=== PATIENT | female | born 1975 | race Caucasian/White ===

== ENCOUNTER 2022-03-03 14:25 | Outpatient (CLI) | payer OTHER, SELFPAY ==
--- OUTSIDE RECORDS SUMMARY | 2022-02-12 09:28 | XMS_ITS | Continuity of Care Document ---
:1975 Author Allergies, Adverse Reactions, Alerts Allergen Type Severity Reaction Last Updated Verified Status Honey Allergy Severe throat May Yes Active swelling/hive 2013 s Social History Smoking Status Status Start Date End Date Date of Observat ion Never smoked tobacco February 19, 2020 9:30am (finding) Additional Data Assigned Sex Female Problems Active Problems Medical Problem Onset Date Status Total abdominal hysterectomy Active Bilateral Salpingectomy Active Pneumonia due to COVID-19 virus Active Medications Medication Status Dose Units Route Directions Qty Days Start End Ins tructions Date Date Azithromycin Active 250-5 MG PO As Directed 25 January 500 MG ON DAY (Zithromax THEN 25 0 MG Z-Noel) 250 Mg 2019 DAILY X 4 TAB 10:52am MORE DAYS Ferrous Active 65 MG PO Twice Daily 100 Sulfate (Iron With Meals (Ferrous Sulfate)) 325 Mg TAB Vit Active 1 TAB OR Daily W/ Ferrous Fumara () TAB Control Discontin PO Daily Septem ued fili 2013 2:57pm Cephalexin Discontin 500 MG PO Three Times February (Keflex) 500 ued A Day 22nd, Mg CAP 2013 11:22a m Docusate Discontin 100 MG PO Twice A Day Octobe Sodium ued as needed r (Colace) 100 , Mg CAP 2013 8:41am Ibuprofen Discontin 600 MG PO Every 6 30 Septemb Octobe ued Hours er r 2013 8:02am 8:41am Ibuprofen Discontin 600 MG PO Q6h Prn 24 Septem (Advil) 200 ued fili Mg TAB 2013 8:02am Iron Discontin PO Daily Septem ued fili 2013 2:57pm Norethindrone Discontin 1 TAB PO Daily 28 Septem (Ortho ued fili Micronor) , 0.35 Mg TAB 2013 8:02am Oxycodone Hcl Discontin 5 MG PO Every 4 30 Septemb Octo be ued Hours as er r needed for , , Moderate 2013 2013 Pain 2:50pm 8:41am Oxycodone Hcl Discontin 5-10 MG PO Every 4 30 Septemb Octo be ued Hours as er r needed , 2013 10:10am 8:41am Oxycodone Hcl Discontin 5 MG PO Every 4 30 Septemb Sept em ued Hours as er fili needed for , , Moderate 2013 2013 Pain 8:02am 2:50pm Discontin Sept ( ued fili Multivit-Min , W/-) 2013 2:57pm Advance Directives Advance Directive Response Recorded Date/Time Does Pt have Health Care No June 14 014 2:21pm Directive? Has patient completed a No February 19, 2020 8:49am Health Care Directive? Insurance Providers Guarantor Johnnie Alonso Address [address] [address] Contact Info. Home Phone: CELL Payer Policy Id Coverage Id Subscriber's Subscriber Id Effective E xpiration Name Date Date [place] [id number] Ranjan Lujan [id number] Screening Johnnie Doss Program Plan of Treatment Future Tests Future scheduled test information is unavailable Pending Tests Pending diagnostic test information is unavailable Future Visits Future appointment information is unavailable Referrals to Other Providers Reason for Referral Start Provider Provider Contact Provider Address Referral Date Information Tony Aranda Work Phone: JOSE C GUERRERO [employer] [facility]AR[facility] Mary [facility] [phone] Future Procedures Future procedure information is unavailable Future Medications Future medication information is unavailable Patient Instructions See Additional Instructions Oxycodone, Rapid Release (By mouth) Abdominal Hysterectomy (DC)
--- NOTE | 2022-03-03 14:40 | CRLHL7_ITS ---
For Patients: As a result of the Century Cures Act, medical imaging exams and procedure reports are released immediately into your electronic medical record. You may view this report before your referring provider. If you have questions, please contact your health care provider. BILATERAL MAMMOGRAM WITH COMPUTER-AIDED DETECTION AND TOMOSYNTHESIS TECHNIQUE: CC and MLO views were obtained. These mammographic images have been obtained using full-field digital technique. These mammographic images were interpreted with the benefit of computer-aided detection. Breast Tomosynthesis was used in this interpretation. COMPARISON FILM: 05/15/2020, 09/23/2016. FINDINGS: The breasts are almost entirely fatty IMPRESSION: There is no radiographic evidence for malignancy. ASSESSMENT: BI-RADS Category 1: Negative RECOMMENDATION: Routine screening mammogram in 1 year. A lay language report of this examination will be provided to the patient. Fausto Villalobos M.D. Diagnostic Radiologist [email or web address] YOLIE/Dictated by: Fausto Villalobos MD @ 03/04/2022 8:52:00 AM (Electronically Signed)
== END 2022-03-03 14:26 | disposition home or self-care (01) ==
LOC: MAMMO 14:26
PROVIDERS: PCP Family Medicine; Visit Provider Nurse Practitioner Family
DX: Z12.31 Encounter for screening mammogram for malignant neoplasm of breast (principal)
CPT/HCPCS: 77063; 77067

== ENCOUNTER 2024-01-06 15:36 | Outpatient (CLI) | payer SELFPAY ==
--- OUTSIDE RECORDS SUMMARY | 2024-01-06 15:40 | XMS_ITS | Data Portability ---
Author Name Unknown Address [address] [place] [id number] Phone [phone] Organization [facility] - Ramakrishna taveras [facility] OFF[facility] Address [address] [place] [address] [place] [address] Assessment Encounter Date Assessment Date Assessment LastModified by Organization Details LastModified Time 02/04/2021 02/04/2021 Due for wellness check (+ cervical/breas t cancer screening) and age appropriate labs before the end of the year. May be done at [facility] (if granted APC) or here. Patient is aware. [email or web address] Not available 02/04/2021 11:33:02 09/21/2021 09/21/2021 + Due for breast and cervical cancer screening. We will enroll in [facility]. [email or web address] Not available 09/21/2021 16:14:50 Plan of Treatment Reminders Order Date Submit Date Provider Last Modified By Organization Details Last Modified Time Details Appointments Any 30 2023 02:30P Dee Dee CARUSO MD Not available Not available Not available Lab CBC w/ auto diff 2023 024 [email or web address] Not available 01/05/2024 16:41:51 CMP, serum or plasma 2023 024 Not available 01/05/2024 16:41:10 fecal occult blood, immunoa ssay, stool 2023 024 Not available 01/05/2024 16:41:10 hemoglo bin A1c, QN, blood 2023 024 [email or web address] Not available 01/05/2024 16:41:21 lipid panel, blood 2021 022 CANDICE Not available 01/05/2022 11:24:03 fecal occult blood, immunoa ssay, stool 2021 CANDICE Not available 11/23/2021 17:39:48 glycohe moglobi n, total, blood 2021 CANDICE Not available 01/05/2022 11:24:03 lipid panel, serum 2021 CANDICE Not available 10/22/2021 13:39:03 fecal occult blood, immunoa ssay, stool 2021 [email or web address] Not available 11/23/2021 17:38:55 glycohe moglobi n, total, blood 2021 CANDICE Not available 10/23/2021 10:31:25 CMP, serum or plasma 2020 CANDICE Not available 11/10/2020 12:59:05 CBC w/ auto diff 2020 CANDICE Not available 11/10/2020 12:59:05 Referral [facility] health worker referra l 2023 024 Not available 01/05/2024 16:41:10 [facility] health worker referra l - Home BP program r/t elevate d BP reading in clinic today. 2020 021 [email or web address] Not available 12/15/2020 12:44:37 care coordin ation referra l - Please help with APC applica tion for likely surgery or GI/Hepa tology referra l. 2020 021 [email or web address] Not available 12/15/2020 16:50:25 Procedures None recorde d. Surgeries None recorde d. Imaging MAMMO, screeni nawaf romo bilater al 2023 024 [facility] Radiology Non Stat, [address], [place], [address], 01/05/2024 16:41:10 MAMMO, screeni aureliano romo 2021 022 [facility] Radiology Non Stat, [address], [place], [address], 03/05/2022 09:24:59 US, abdomen , complet e - Hx fatty liver, intermi ttent acute RUQ pain. 2020 021 [email or web address] [facility] Radiology Non Stat, [address], [place], [address], 12/23/2020 15:13:50 US, abdomen 2020 021 CANDICE Not available 11/10/2020 15:05:38 Medication Orders doxycyc line hyclate 100 mg capsule [address], [address] [place], [address], 01/05/2024 16:41:10 prednis one 20 mg tablet [address], [address] [place], [address], 01/05/2024 16:02:42 cyclobe nzaprin e 10 mg tablet 2023 024 [facility], [address] [place], [address], 12/08/2023 17:08:35 metroni dazole 500 mg tablet [address], [address], [place], [address], 12/08/2023 16:56:11 clotrim azole 1 % topical cream [address], [address], [place], [address], 12/08/2023 16:56:22 Patient TargetsNo targets recorded. Patient Instructions Encounter Date Encounter Id Patient Instructions Last Modified By Organization Details Last Modified Time 12/08/2023 [id number] meds as above ho me exercises Follow up in 4 weeks - due for IRAJ exam and can more further plan for back if needed at that time Not available 12/08/2023 22:28:45 11/02/2021 [id number] vaginosis bacteriana: instrucciones de cuidado - [bacterial vaginosis: care instructions] [email or web address] Not available 11/02/2021 12:05:02 pie de atleta: instrucciones de cuidado - [athlete's foot: care instructions] [email or web address] Not available 11/02/2021 12:05:02 09/21/2021 [id number] insomnio: instrucciones de cuidado - [insomnia: care instructions] [email or web address] Not available 09/21/2021 16:19:00 Reason for Referral Community Health Worker Refe rral for Elevated blood-pressure reading without diagnosis of hypertension Home BP program r/t elevated BP reading in clinic today. Referring Physician: Christina Sevilla, Family Medicine, Encounter Date: 12/15/2020 Care Coordination Referral f or Right upper quadrant pain Please help with APC application for likely surgery or GI/Hepatology referral. Referring Physician: Christina Sevilla Family Medicine, Encounter Date: 12/15/2020 Community Health Worker Refe rral for Elevated blood-pressure reading without diagnosis of hypertension Blood pressure follow up/home monitoring/education Referring Physician: Domonique Caruso Family Medicine, Encounter Date: 01/05/2024 Results Created Date Observation Date Name Description Value Unit Range Abnormal Flag LastModifiedBy Organization Detail LastModifiedTime 11/11/19 21 11/10/2020 CBC w/ auto diff creatinine 0.6 Not Available [facility]- Lab [address] [place], [address], 11/10/2020 12:59:05 11/11/19 21 11/10/2020 CBC w/ auto diff ALT 28 Not Available [facility]- Lab [address] [place], [address], 11/10/2020 12:59:05 11/11/19 21 11/10/2020 CBC w/ auto diff white blood count 8.91 Not Available [facility] [address] [place], [address], 11/10/2020 12:59:05 11/11/19 21 11/10/2020 CBC w/ auto diff hemoglobin 14.0 Not Available [facility] [address] [place], [address], 11/10/2020 12:59:05 11/11/19 21 11/10/2020 CBC w/ auto diff platelet count 400 Not Available [facility] [address] [place], [address], 11/10/2020 12:59:05 11/11/19 21 11/10/2020 CMP, serum or plasm a creatinine 0.6 Not Available [facility] [address] [place], [address], 11/10/2020 12:56:35 11/11/19 21 11/10/2020 CMP, serum or plasm a ALT 28 Not Available [facility]- Lab [address] [place], [address], 11/10/2020 12:56:35 11/11/19 21 11/10/2020 CMP, serum or plasm a white blood count 8.91 Not Available [facility] [address] [place], [address], 11/10/2020 12:56:35 11/11/19 21 11/10/2020 CMP, serum or plasm a hemoglobin 14.0 Not Available [facility] [address] [place], [address], 11/10/2020 12:56:35 11/11/19 21 11/10/2020 CMP, serum or plasm a platelet count 400 Not Available [facility] [address] [place], [address], 11/10/2020 12:56:35 10/22/19 22 10/21/2021 lipid panel , serum cholesterol total 179 Not Available Not Available 12:18:41 10/22/19 22 10/21/2021 lipid panel , serum triglyceride s 93 Not Available Not Available 12:18:41 10/22/19 22 10/21/2021 lipid panel , serum HDL 56 Not Available Not Available 10/2021 12:18:41 10/22/19 22 10/21/2021 lipid panel , serum LDL 104 Not Available Not Available 10/2021 12:18:41 10/22/19 22 10/21/2021 glyco hemog lobin , total , blood A1C 5.5 Not Available Not Available 11/2021 09:28:16 10/29/19 22 10/28/2021 fecal occul t blood , immun oassa y, stool ifobt neg neg normal Not Available Not Available 11/2021 17:39:13 01/06/20 22 01/05/2022 glyco hemog lobin , total , blood total cholesterol 166 Not Available [facility] [address] [place], [address], 01/05/2022 11:24:03 01/06/20 22 01/05/2022 glyco hemog lobin , total , blood triglyceride s 95 Not Available [facility] [address] [place], [address], 01/05/2022 11:24:03 01/06/20 22 01/05/2022 glyco hemog lobin , total , blood HDL 57 Not Available [facility] [address] [place], [address], 01/05/2022 11:24:03 01/06/20 22 01/05/2022 glyco hemog lobin , total , blood LDL 90 Not Available [facility] [address] [place], [address], 01/05/2022 11:24:03 01/06/20 22 01/05/2022 glyco hemog lobin , total , blood hemoglobin A1C 5.5 Not Available [facility] [address] [place], [address], 01/05/2022 11:24:03 01/06/20 22 01/05/2022 lipid panel , blood total cholesterol 166 Not Available [facility] [address] [place], [address], 01/05/2022 10:08:19 01/06/20 22 01/05/2022 lipid panel , blood triglyceride s 95 Not Available [facility] [address] [place], [address], 01/05/2022 10:08:19 01/06/20 22 01/05/2022 lipid panel , blood HDL 57 Not Available [facility] [address] [place], [address], 01/05/2022 10:08:19 01/06/20 22 01/05/2022 lipid panel , blood LDL 90 Not Available [facility] [address] [place], [address], 01/05/2022 10:08:19 01/06/20 22 01/05/2022 lipid panel , blood hemoglobin A1C 5.5 Not Available [facility] [address] [place], [address], 01/05/2022 10:08:19 11/11/19 21 11/10/2020 US, abdom en No observ ation record ed. [email or web address] [facility] Radiology Department [address] [place], [address], 11/24/2020 16:47:23 12/24/19 21 12/18/2020 US, abdom en, compl ete No observ ation record ed. [facility] Radiology Non Stat [address] [facility] [place], [address], 12/23/2020 16:37:21 03/05/20 22 03/03/2022 MAMMO , scree roseann, bilat eral No observ ation record ed. [email or web address] [facility] Radiology Department [address] [place], [address], 03/22/2022 11:44:45 Result Notes None recorded. Problems Name Status Onset Date Resolution Date Notes Provider Name and Address Organization Details Recorded Time Right upper quadrant pain Active 02/05/20 21 Christina Sevilla NP [address] [place], [address], [facility] [employer] 02/04/2021 11:22:59 Steatosis of liver Active 02/05/20 21 [place] [address] [place] [address], [address], [facility] [employer] 11/02/2021 12:45:47 SARS-CoV-2 Active 02/15/20 [place] [address] [place] [address], [address], [facility] [employer] 11/02/2021 12:45:45 Obesity Active 11/03/19 22 Christina Sevilla NP [address] [place], [address], [facility] [employer] 11/02/2021 12:46:09 History of pre-eclampsia Active 11/04/19 15 Christina Sevilla NP [address] [place], [address], [facility] [employer] 11/02/2021 12:45:43 Problem Notes None recorded. Procedures Surgical History Date Name Laterality Status Provider Name and Address Organization Details Recorded Time 08/22/19 20 Date of Last Mammogram completed Christina Sevilla NP [address] [place], [address], [facility] [employer] 09/21/2021 16:08:58 08/22/19 16 Date of Last Pap Smear completed Christina Sevilla NP [address] [place], [address], [facility] [employer] 09/21/2021 16:08:45 08/22/19 14 hysterectomy completed Christina Sevilla NP [address] [place], [address], [place] [facility] 11/02/2021 12:50:55 Imaging Results Imaging Date Name Status LastModified by Organiz ation Details LastModified Time 11/10/2020 US, abdomen completed [email or web address] [facility] Radiology Department [address] [place], [address], 11/24/2020 16:47:23 12/18/2020 US, abdomen, complete completed [email or web address] [facility] Radiology Non Stat [address] [place], [address], 12/23/2020 16:37:21 03/03/2022 MAMMO, screening, bilateral completed [email or web address] [facility] Radiology Department [address] [place], [address], 03/22/2022 11:44:45 Procedure Notes None recorded. Medical Equipment None Reported. Allergies No known drug allergies Medications Name Sig Start Date Stop Date Status Note LastModified by Organization Details LastModified Time cyclobenza nadir 10 mg tablet TAKE 1 TABLET BY MOUTH EVERY DAY AT BEDTIME FOR BACK PAIN. active Not Available Not Available No t Available Levsin 0.125 mg tablet Take 1 tablet twice a day by oral route. 09/21 completed As needed for pain; per Dr. Hill. Not Available Not Available Not Available doxycyclin e hyclate 100 mg capsule Take 1 capsule twice a day by oral route, for follicul itis. 2023 active Not Available Not Available Not Avai lable azithromyc in 250 mg tablet 11/03 completed Not Available Not Available Not Available prednisone 20 mg tablet TAKE 1 TABLET BY MOUTH EVERY MORNING FOR 7 DAYS FOR OF BACK PAIN. 01/04 completed Not Available Not Available Not Available metronidaz ole 500 mg tablet TAKE ONE TABLET BY MOUTH EVERY 12 HOURS FOR 7 DAYS 12/07 completed Not Available Not Available Not Available benzonatat e 100 mg capsule TK 1 C PO TID PRF COUGH 11/03 completed Not Available Not Available Not Available cephalexin 500 mg capsule take 1 capsule by oral route every 12 hours 11/03 completed Not Available Not Available Not Available albuterol sulfate HFA 90 mcg/actuat ion aerosol inhaler Inhale 2 puffs every 4 hours by inhalati on route as needed. 12/15 completed Not Available Not Available Not Available clotrimazo le 1 % topical cream APPLY TO AFFECTED AND SURROUND ING AREAS OF SKIN TWICE A DAY IN THE MORNING AND IN THE EVENING 12/07 completed Not Available Not Available Not Available amoxicilli n 875 mg-potassi um clavulanat e 125 mg tablet TK 1 T PO BID WITH MEALS FOR 5 DAYS 11/03 completed Not Available Not Available Not Available black cohosh 40 mg tablet one a day 12/15 completed Not Available Not Available Not Available valerian root 11/02 completed Not Available Not Available Not Available Vitals Date Recorded Body temperature Heart rate Body weight Body mass index (BMI) Body height Systolic blood pressure Diastolic blood pressure Systolic blood pressure Diastolic blood pressure Provider Name and Address Organization Details Last Updated DateTime 1 98.6 [degF] 73 /min 273434. 16 g 47.3 kg/m2 160.02 cm 140 mm[Hg] 85 mm[Hg] 155 mm[Hg] 90 mm[Hg] Christina Sevilla NP [address] [place], [address] 1 11:45:46 Date Recorded Body height Body temperature Heart rate Body mass index (BMI) Body weight Systolic blood pressure Diastolic blood pressure Provider Name and Address Organization Details Last Updated DateTime 2 160.02 cm 97.6 [degF] 73 /min 46.2 kg/m2 753975. 61 g 125 mm[Hg] 80 mm[Hg] Christina Sevilla NP [address] [place], [address], [facility] 2 11:35:19 Date Recorded Body height Body mass index (BMI) Body weight Heart rate Systolic blood pressure Diastolic blood pressure Provider Name and Address Organization Details Last Updated DateTime 2 160.02 cm 46.2 kg/m2 102339. 61 g 72 /min 124 mm[Hg] 82 mm[Hg] Christina Sevilla, [employer] [address] [place], [address] [employer] [facility] 2 12:44:35 Date Recorded Body height Body mass index (BMI) Body weight Respiratory rate Oxygen saturation Oxygen saturation in Arterial blood by Pulse oximetry Body temperature Heart rate Systolic blood pressure Diastolic blood pressure Provider Name and Address Organization Details Last Updated DateTime 4 160.02 cm 45.3 kg/m2 054611. 21 g 22 /min 99 % 99 % 97.1 [degF] 80 /min 132 mm[Hg] 84 mm[Hg] [facility] [employer] [facility] 4 16:48:47 Date Recorded Body height Body mass index (BMI) Body weight Respiratory rate Oxygen saturation Oxygen saturation in Arterial blood by Pulse oximetry Body temperature Heart rate Systolic blood pressure Diastolic blood pressure Provider Name and Address Organization Details Last Updated DateTime 4 160.02 cm 45.3 kg/m2 775269. 21 g 22 /min 99 % 99 % 97.2 [degF] 92 /min 140 mm[Hg] 92 mm[Hg] [facility] [employer] [facility] 4 15:59:30 Date Recorded Systolic blood pressure Diastolic blood pressure Provider Name and Address Organization Details Last Updated DateTime 10/23/2019 128 mm[Hg] 81 mm[Hg] Not Available [facility] 0 03/10/2020 12:57:46 Date Recorded Systolic blood pressure Diastolic blood pressure Provider Name and Address Organization Details Last Updated DateTime 06/19/2019 138 mm[Hg] 86 mm[Hg] Not Available [facility] 0 03/10/2020 12:57:46 Social History None recorded. Functional Status None recorded. Mental Status None recorded. Family History Relationship Description Onset Age of this Age Resolved Age Notes Mother Type 2 diabetes mellitus Mother Hypertensive disorder Mother Neoplasm of stomach Father Hypertensive disorder Sister Malignant tumor of breast Unknown type; alive and well. Medical History Condition Response Obesity Y Endometriosis Y Pre-Eclampsia Y Dermatologic Disorders Y Gynecological History Statement/Question Response Menses Monthly N Abnormal Pap Y If Post Menopausal, Age at Menopause Date of Last Pap Smear 08/22/2015 Date of Last Mammogram 08/22/2019 Sexually Active? Y Obstetrics History GPAL:G 4 P 3 0 1 3 Type Value Full Term 3 Spontaneous 1 Living 3 Total 4 Past Encounters Encounter ID Performer Location Encounter Start Date Encounter Closed Date Diagnosis/Indication Diagnosis SNOMED-CT Code [id number] Yelitza Galeana NP [facility] [address] [place] [id number] 02/13/2020 15:00:35 02/13/2020 15:03:08 [id number] Yelitza Galeana NP [facility] [address] [place] [phone] 02/27/2020 14:44:19 02/27/2020 14:44:58 [id number] Christina Sevilla NP [facility] [address] [place] [phone] 11/03/2020 09:47:30 11/04/2020 11:13:05 Abdominal pain 71605150 Right uppe r quadrant pain 087034532 [id number] Christina Sevilla NP [facility] [address] [place] [phone] 12/15/2020 11:27:05 12/15/2020 12:17:35 Elevated blood-pressure reading without diagnosis of hypertension 123794667 Right uppe r quadrant pain 473838824 Obesity 245325610 [id number] Christina Sevilla NP [facility] [address] [place] [phone] 02/04/2021 10:55:48 02/04/2021 14:30:19 Right upper quadrant pain 728242494 Steatosis of liver 1007 Elevated blood-pressure reading without diagnosis of hypertension 723964890 [id number] Christina Sevilla NP [facility] [address] [place] [phone] 09/21/2021 10:47:00 09/21/2021 11:43:49 Screening for malignant neoplasm of colon [id number] [facility] [id number] Diabetes m ellitus screening 504725453 Cholesterol screening 27 2720116 Obesity 597477080 Right uppe r quadrant pain 561229232 History of pre-eclampsia 42102144009680 0 Steatosis of liver 1007 [id number] Christina Sevilla NP [facility] [address] [place] [phone] 11/02/2021 11:27:51 11/02/2021 12:19:26 Bacterial vaginosis 459380762 Tinea pedis 0124432 Screening for malignant neoplasm of breast 968944338 Diabetes m ellitus screening 570897287 Hyperlipid emia screening 679584513 Screening for malignant neoplasm of colon 261295016 Obesity 382440953 Cyst of vulva 60031271 [id number] DOMONIQUE CARUSO MD [facility] [address] [place] [address] [place] [address] 12/08/2023 16:12:16 12/08/2023 17:18:56 Acute low back pain 386856013 [id number] DOMONIQUE CARUSO MD [facility] [address] [place] [address] [place] [address] 01/05/2024 15:24:31 01/05/2024 16:31:45 Gynecologic examination 83063900 Screening for malignant neoplasm of breast 785556116 Screening for malignant neoplasm of colon 948698218 Diabetes m ellitus screening 064344812 Easy bruising 032082518 Folliculitis 48657174 Elevated blood-pressure reading without diagnosis of hypertension 368822038 Health Concerns Section Related Observation LastModified by Organization Detai ls LastModified Time None Recorded Concern Status LastModified by Organization Details LastModified Time None Recorded Advance Directives Directive None Recorded Payers Encounter Date Sequence Insurance Name Policy Number Policy Huitron Covered Member ID Huitron Member ID Guarantor Name 01/05/2024 IRAJ SCREENING PROGRAM - [facility] Zakia Woodruff [id number] Zakia Woodruff 12/08/2023 IRAJ SCREENING PROGRAM - [facility] Zakia Woodruff [id number] Zakia Woodruff 11/02/2021 SLIDING FEE SCHEDULE - DISCOUNT Zakia Woodruff 09/21/2021 SLIDING FEE SCHEDULE - DISCOUNT Zakia Woodruff 02/04/2021 SLIDING FEE SCHEDULE - DISCOUNT Zakia Woodruff 12/15/2020 SLIDING FEE SCHEDULE - DISCOUNT Zakia Woodruff 11/03/2020 SLIDING FEE SCHEDULE - DISCOUNT Zakia Woodruff 02/27/2020 SLIDING FEE SCHEDULE - DISCOUNT Zakia Woodruff 02/13/2020 SLIDING FEE SCHEDULE - DISCOUNT Zakia Woodruff Notes Date Note Type Note Provider Name and Address Organization Details Recorded Time 11/03/2020 text/html HPI Notes: Abdominal Pain Reported by patient. Location: RUQ; Just below breast Severity: pain level 3-4/10 Duration: constant Onset/Timing: better Aggravating Factors: nothing makes it worse Alleviating Factors: Ibuprofen 600mg q6 hours Associated Symptoms: no fever; no shortness of breath; no vomiting; normal stool; no blood in stool; 1 day of nausea. No rashes or skin changes. No joint pain. Other: S/P Hysterectomy. Pain Radiation: around the back Previous Tests, Treatment and/or Diagnostic Procedures: OTC medications; Has been told she had a gallbladder inflammation during last 6 years ago. 45 year old [place]ag[place]-speaking woman reached today via phone. Ratna Harris interpreting. Had similar pain when she was 6 years ago and told this was gallbladder inflammation. Pain then resolved without treatment. Pain returned suddenly 1-2 weeks ago; pain was at 6-7/10 and now is 3-4 /10. A real bother. Had reduced appetite during more severe pain and could only tolerate liquids. Is now trying to eat very light, low-fat foods. 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 Ratna Harris interpreting via [email or web address]. 2 days ago: RUQ pain came back and was intense again. Today, woke with very mild pain: describes it as a mild bother. Before 2 days ago, pain was still present: alternates between being very light and very intense. The more intense episodes can last up to a day. 2 weeks ago had an episode of terrible pain and nausea, felt she wanted to go to the hospital but then pain abated after 2 hours. No fever or diarrhea. Ibuprofen and Tylenol have never helped. Has not tried any PPI or H2 blockers as pain as she does not believe the pain has any gastric origin. No reflux. No sour taste in mouth. Pain is always limited to RUQ, just along lower margin of breast and lower right costal margin. Again believes pain feels identical to the gallbladder pain she had in her . Frustrated by normal RUQ U/S last month and normal LFTs, negative H. Pylori. Has not been able to find any provoking cause. No food, activity or time or day that correlates with the pain. Daily BM. Soft. No nausea with the pain. No daily or frequent NSAID use. Had second dose dose of COVID-19 vaccine over the work. Took NSAIDs but they did not help. Was worried about increasing blood pressure and feels it wasn't taken seriously last year (record review shows BP was normal 11/08). Weight is up 16# from last year. 10/11 lab review: normal lipid profile, CMP, A1C 5.4%. 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 Hill. Pain has not resolved and she is frustrated that she has no answers. The CCK-HIDA scan was recommended but Zakia does not want to wait for APC application to be approved to schedule. She has not tried the Levsin yet as she was not sure how to fill it at [facility]. Tried to eat very healthy last week but found that this made her RUQ pain worse. BP at [facility]: 111/59. CHW Cindy Gonzalez has been following patient's BPs. Per patient, they are sometimes high, sometimes low. Full vaccinated against COVID-19. 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 Zakia reports good health and mood. She has been changing her diet to decrease her RUQ pain with great success: a lower fat and lower salt diet have been helpful. RUQ pain is improving; trying to eat goods that don't cause her damage. Heavy fats and salts. Pain episodes will come 2-3x/month; last 1 hour. This is tolerable. Gyne Review & Screenin years since a Pap smear. She has had abnormal pap in the past. Mammogram 2 years ago normal. No family history of breast cancer although her sister has breast cysts. No iFOBT or colon cancer screening done. PMH and PSH reviewed. ROS: Struggling a little with insomnia over the past 2 weeks. Falls asleep 9am; wakes at 6:30am. Melatonin is never helpful; causes headaches. Takes a long time to fall back asleep. Attributes to menopause due to lots of hot flashes as well as her bed partner snoring. Valerian root has helped in the past. No coffeine. No ETOH. Recently boosted for COVID. Christina Sevilla NP [address] [place], [address], [employer] 09/21/2021 16:21:22 11/02/2021 text/html HPI Notes: Zakia is a Malagasy-speaking woman who presents today for a [place] breast cancer screening exam. Zakia is also here to review her recent screening labs: iFOBT, Lipid Panel and A1C all excellent. Reviewed that patient's insomnia has resolved; attributes to COVID-19 vaccine side effects. Gyne/Breast Review: S/P [facility] 2013 for endometriosis and tumor. Ovaries remain. 3 x vaginal births. Currently sexually active. Reports new onset of foul-smelling, thin discharge after intercourse for the past month. No pain. No pruritis. No skin changes. No new partners. No home treatments tried. No breast concerns: no skin changes, dimpling, pain, discharge. Sister with breast cancer (unknown type). Christina Sevilla NP [address] [place], [address], [employer] 11/02/2021 12:52:25 12/08/2023 text/html HPI Notes: 48 yo u female with back pain Started about 3 weeks ago. 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 Pain located low back mostly on the right side pain seems worse - constant. Feels better if moving. Worse when she stops. But also has pain with certain movements. Pain bothersome at night. Pain keeps her awake, cannot get comfortale- sleeping in an arm chair. No radiation of pain to buttocks or legs. No numbness/tingling or weakness on LE. No symptoms of difficulty with voiding or bowel problems. Using ibuprofen - 3 tabs every 6 hours at time which has not helped. Has also used tylenol for pain. No past hx of back problems Has used naproxen in the past which she reports cause her BP to go up DOMONIQUE CARUSO MD [address] [place], [address], [facility] [employer] 12/08/2023 22:29:29 01/05/2024 text/html HPI Notes: __48_ _ y.o. F presents for [place] breast health visit Last mammogram date and result: 2021 Personal history of breast issues or concerns: Curent Breast ROS: denies breast lumps, pain, nipple discharge/itching, rash, change in appearance Family history of breast cancer: Breast self awareness discussed Last pap date/result: prior to hysterectomy History of abnormal pap smears: No Gynecologic history: s/p hysterectomy LMP: s/p hyst for fibroid Gynecologic ROS: denies vaginal discharge, itching, odor, irritation, pelvic pain, abnormal bleeding Does have some painful bumps on vulva - gets them occasionally - will drain fluid Also concerned about easy bruising. FH: colon cancer mother age colon Aunt age 47 DOMONIQUE CARUSO MD [address] [place], [address], [facility] [employer] 01/05/2024 16:41:16 OBGyn Episode No OBEpisode recorded.
--- OUTSIDE RECORDS SUMMARY | 2024-01-06 15:40 | XMS_ITS | Continuity of Care Document ---
Author Name Unknown Address [address] [place] [address] Phone [phone] Organization [place] [facility] Address [address] [place] [phone] Assessment No assessment recorded. Plan of Treatment Reminders Order Date Submit Date Provider Last Modified By Organization Details Last Modified Time Details Appointments None recorded . Lab CBC w/ auto diff 2023 024 [email or web address] Not available 4 16:41:51 CMP, serum or plasma 2023 024 Not available 16:41:10 fecal occult blood, immunoas say, stool 2023 024 Not available 4 16:41:10 hemoglob in A1c, QN, blood 2023 024 [email or web address] Not available 4 16:41:21 Referral communit y health worker referral 2023 024 Not available 4 16:41:10 Procedures None recorded . Surgeries None recorded . Imaging MAMMO, screenin g, digital, bilatera l 2023 024 [facility] Non Stat, [address] [place], [address], 4 16:41:10 Medication Orders doxycycl ine hyclate 100 mg capsule 2023 024 [facility], [address] [place] [address], [address], 16:41:10 Patient TargetsNo targets recorded. Patient InstructionsNo instructions recorded. Reason for Referral Community Health Worker Refe rral for Elevated blood-pressure reading without diagnosis of hypertension Home BP program r/t elevated BP reading in clinic today. Referring Physician: Christina Sevilla [facility], Encounter Date: 12/15/2020 Care Coordination Referral f or Right upper quadrant pain Please help with APC application for likely surgery or GI/Hepatology referral. Referring Physician: Christina Sevilla [facility] Medicine, Encounter Date: 12/15/2020 Community Health Worker Refe rral for Elevated blood-pressure reading without diagnosis of hypertension Blood pressure follow up/home monitoring/education Referring Physician: Domonique [facility], Encounter Date: 01/05/2024 Problems Name Status Onset Date Resolution Date Notes Provider Name and Address Organization Details Recorded Time Right upper quadrant pain Active 02/05/20 21 Christina Sevilla NP [address] [place], [address], [facility] 02/04/2021 11:22:59 Steatosis of liver Active 02/05/20 21 Christina Sevilla NP [address] [place], [address], [employer] [facility] 11/02/2021 12:45:47 SARS-CoV-2 Active 02/15/20 20 Christina Sevilla NP [address] [place], [address], [facility] 11/02/2021 12:45:45 Obesity Active 11/03/19 22 Christina Sevilla NP [address] [place], [address], [facility] 11/02/2021 12:46:09 History of pre-eclampsia Active 11/04/19 15 Christina Sevilla NP [address] [place], [address], [facility] 11/02/2021 12:45:43 Problem Notes None recorded. Procedures Surgical History Date Name Laterality Status Provider Name and Address Organization Details Recorded Time 08/22/19 20 Date of Last Mammogram completed Christina Sevilla, GABRIEL [address] [facility] [place], [address], [facility] 09/21/2021 16:08:58 08/22/19 16 Date of Last Pap Smear completed Christina Sevilla NP [address] [facility] [place], [address], [facility] 09/21/2021 16:08:45 08/22/19 14 hysterectomy completed Christina Sevilla, GABRIEL [address] [facility] [place], [address], [facility] 11/02/2021 12:50:55 Imaging Results None recorded. Procedure Notes None recorded. Medical Equipment None [...] Available Not Available Vitals Date Recorded Body height Body mass index (BMI) Body weight Respiratory rate Oxygen saturation Oxygen saturation in Arterial blood by Pulse oximetry Body temperature Heart rate Systolic blood pressure Diastolic blood pressure Provider Name and Address Organization Details Last Updated DateTime 160.02 cm 45.3 kg/m2 400641. 21 g 22 /min 99 % 99 % 97.2 [degF] 92 /min 140 mm[Hg] 92 mm[Hg] Monica Arriola [facility] 15:59:30 Social History None recorded. Functional Status None [...] Encounter Closed Date Diagnosis/Indication Diagnosis SNOMED-CT Code [id number] MD [facility] [address] [place] [address] [place] [address] 12/08/2023 16:12:16 12/08/2023 17:18:56 Acute low back pain [id number] MD [facility] [address] [facility] [place] [address] 01/05/2024 15:24:31 01/05/2024 16:31:45 Gynecologic examination 94593018 Screening for malignant neoplasm of breast 772668709 Screening for malignant neoplasm of colon 536796168 Diabetes m ellitus screening 750089402 Easy bruising 301343316 Folliculitis 28241241 Elevated blood-pressure reading without diagnosis of hypertension 544598637 Health Concerns Section Related Observation LastModified by Organization Detai ls LastModified Time None Recorded Concern Status LastModified by Organization Details LastModified Time None Recorded Payers Encounter Date Sequence Insurance Name Policy Number Policy Huitron Covered Member ID Huitron Member ID Guarantor Name 01/05/2024 [employer] - [place] [employer] Zakia Woodruff [id number] Zakia Woodruff Notes Date Note Type Note Provider Name and Address Organization Details Recorded Time 01/05/2024 text/html HPI Notes: __48_ _ y.o. F presents for [facility] breast health visit Last mammogram date and [...] colon Aunt age 47 DOMONIQUE CARUSO MD [facility] [place], [address], [facility] - [employer] [facility] 01/05/2024 16:41:16 OBGyn Episode No OBEpisode recorded.
--- OUTSIDE RECORDS SUMMARY | 2024-01-06 15:40 | XMS_ITS | Clinical Summary ---
Author Name Unknown Organization [employer] [facility] [place], [place] [address] Care Team Providers Care Passenger Tire Builder Name Role Phone NaifteTony lopez MD Primary Care Provider + Allergies No known active allergies Medications Medication Sig Dispensed Refills Start Date End Date Status hyoscyamine (LEVSIN) 0.125 mg tabletIndications:Abd ominal pain, RUQ (right upper quadrant) Take 1-2 Tablets (0.125-0.25 mg) by mouth every 4 hours if needed. 30 Tablet 11 01/28/2021 Active Active Problems Problem Noted Date Diagnosed Date HELLP syndrome, delivered, current hospitalizati on 03/14/2014 Status post vaginal delivery 03/14/2014 Resolved Problems Problem Noted Date Diagnosed Date Resolved Date Elderly multigravida delivered 03/14/2014 07/15/2014 Advanced maternal age (AMA) in 09/18/2013 07/15/2014 Supervision of other normal 09/07/2013 07/15/2014 Overview: Advanced maternal age Abnormal 1st trimester screen with 1/16 risk of Down Syndrome, reassuring level 2 ultrasound. It's a boy! TDaP 01/21/2014 Immunizations Name Administration Dates Next Due AMB Influenza, IIV3 (Age >=3 years)(Flu Clinic Only) 05/30/2009 COVID-19 vaccine (Capitol BellsBio NTech 30mcg/0.3mL) 12YO+ LEWIS-SUCROSE PF MDV 09/17/2021 Influenza A (H1N1), Inactivated 08/08/2009 Influenza, IIV3 (Age >=3 years) 05/11/20 13,06/25/2011,08/30/2008,2007 Influenza, IIV4 06/26/2020,09/23/2016,04/23/2014 Td, Preservative Free (age > = 7 Years) 09/08/2007 Tdap 01/21/2014 Family History Medical History Relation Name Comments Hypertension Father Hypertension Mother Cancer-breast No Family History Relation Name Status Comments Father Mother Social History Tobacco Use Types Packs/Day Years Used Date Smoking Tobacco: Never Smokeless Tobacco: Never Tobacco Cessation:Counseling Given: Yes Alcohol Use Standard Drinks/Week Comments No 0 (1 standard drink = 0.6 oz pur e alcohol) Social Connections Answer Date Recorded Frequency of Communication with Friends and Fami ly Not on file 08/22/2021 Financial Resource Strain Answer Date R ecorded Difficulty of Paying Living Expenses Not on file 08/22/2021 Difficulty of Paying Living Expenses Not on file 08/22/2021 Sex and Gender Information Value Date Recorded Sex Assigned at Not on file Gender Identity Not on file Sexual Orientation Not on file Obstetrics History Para Term AB IAB SAB Ectopic Multiple Livin g Live Births 4 3 2 1 1 1 3 Date Outcome GA Total Labor Labor/2nd/3rd Weight Sex Delivery Anes PTL Ashley A1 A5 Name Cl in 07/28 Term 40w 0d Vag Y Comments:post h emorrhage 04/13 Term 40w 0d Vag Y 2009 SAB 03/12 35w 6d Vag Y Comments:preeclampsia Last Filed Vital Signs Vital Sign Reading Time Taken Comments Blood Pressure 111/59 01/28/2021 3:18 PM CDT Pulse 81 01/28/2021 3:18 PM CDT Temperature 36.9 ??C (98.5 ??F) 02/21/2020 1 0:56 AM CDT Respiratory Rate 18 03/14/2014 9:53 PM CDT Oxygen Saturation 94% 01/28/2021 3:18 PM CDT Inhaled Oxygen Concentration - - Weight 119.1 kg (262 lb 9.6 oz) 01/28/2021 3:18 PM CDT Height 162 cm (5' 3.78) 09/23/2016 12: 10 PM MEDICAL UNDERWRITER Body Mass Index 45.39 09/23/2016 12:10 PM MEDICAL UNDERWRITER Plan of Treatment Health Maintenance Due Date Last Done Comments Depression screening for age 12+ 1985 Hepatitis C screening for age 18-79 1991 BMI (ht and wt on same day) for age 18+ 09/23/2017 09/23/2016 Colonoscopy through age 75 2018 Mammogram for age 45-75 03/03/2023 03/03/20, 05/15/2020, 09/23/2016 COVID-19 vaccine series ( season) 2023 09/17/2021, 12/13/2020, 11/22/2020 Zoster (shingles) series for age 50+ (1 of 2) 2023 Tetanus booster 01/22/2024 01/21/2014, 09/08/2007 Influenza for age 50-64 04/22/2024 06/26/20, 09/23/2016, 04/23/2014, Additional history exists Lipids for age 45-75 10/21/2026 10/21/2021, 10/17/2019, 11/10/2007, Additional history exists HIV for age 15-65 Completed 09/03/2013, 12/04/2010 Tdap Completed 01/21/2014 Pneumococcal series for age 6-64 Aged Out No longer eligible based on patient's age to complete this topic Procedures Procedure Name Priority Date/Time Associated Diagnosis Comments SCAN-MAMMOGRAPHY REPORT 03/03/2022 12:00 AM CDT LIPID PANEL Routine 10/21/2021 10:14 AM MEDICAL UNDERWRITER ANTI HIV 1/2 Routine 09/03/2013 4:13 PM MEDICAL UNDERWRITER Supervision of other normal from Last 3 Months or Most Recently Relevant to Health Maintenance Results * SCAN-MAMMOGRAPHY REPORT (03/03/2022 12:00 AM CDT) Anatomical Region Laterality Modality Other Scanner OTHER * LIPID PANEL (10/21/2021 10:14 AM MEDICAL UNDERWRITER) CHOLESTEROL,TOTAL 179 100 - 199 mg/dL 10/22/2021 10:59 AM MEDICAL UNDERWRITER [facility] TRIGLYCERIDES 93 <150 mg/dL 10/22/2021 10:59 AM MEDICAL UNDERWRITER [facility] HDL CHOLESTEROL 56 >40 mg/dL 10:[address] [facility] NON-HDL CHOLESTEROL 123 <145 mg/dl 10/22/2021 10:[address] [facility] CHOL/HDL RATIO 3.20 <4.50 10/22/2021 10:[address] [facility] LDL CHOLESTEROL 104 <=130 mg/dL 10/22/2021 10:[address] [facility] VLDL CHOLESTEROL 19 <=30 mg/dL 10/22/2021 10:[address] [facility] PROVIDER ORDERED STATUS RANDOM 10/22/2021 10:[address] [facility] Blood BLOOD SPECIMEN / Unknown 10/21/2021 10:14 AM MEDICAL UNDERWRITER 10/22/2021 10:14 AM MEDICAL UNDERWRITER Christina Sevilla RN, INSPECTOR [employer] CHEMISTRY [facility] [address] [place] [address] * ANTI HIV 1/2 (09/03/2013 4:13 PM MEDICAL UNDERWRITER) ANTI HIV 1/2 Non-reacti ve [facility] Blood specimen (specimen) BLOOD SPECIMEN / Unknown 09/03/2013 4:13 PM MEDICAL UNDERWRITER 09/03/2013 4:02 PM MEDICAL UNDERWRITER Ashley Marques MD SEND OUTS [facility] [place] ZIP [id number] [place] [phone] from Last 3 Months or Most Recently Relevant to Health Maintenance Advance Directives * Full Code (Latest Code Status on File) Date Activated Date Inactivated Comments 03/14/2014 7:00 PM 03/15/2014 1:38 PM Care Teams Passenger Tire Builder Relationship Specialty Start Date End Date Votel, Tony Delarosa MD [address] [place] [address] PCP - General Family Practice 12/16/20
[2024-01-06 16:11] LABS: Basophils Absolute Auto 0.05 K/uL (0.00-0.30); Basophils Percent Auto 0.5 % (0.0-3.0); Eosinophils Absolute Auto 0.41 K/uL (0.00-0.50); Hematocrit 41.1 % (33.0-51.0); Hemoglobin* 13.4 gm/dL (12.0-16.0); Immature Granulocytes Abs Auto 0.02 K/uL (0.00-0.30); Immature Granulocytes Pct Auto 0.2 %; Lymphocytes Absolute Auto 2.77 K/uL (0.90-2.90); Lymphocytes Percent Auto 27.3 % (20-44); Mean Corpuscular HGB Conc 33 gm/dL (32-36); Mean Corpuscular Hemoglobin 30 pg (26-34); Mean Corpuscular Volume 91 fL (80-100); Monocytes Percent Auto 8.5 % (0.0-11.0); Neutrophils Absolute Auto 6.03 K/uL (1.7-7.0); Neutrophils Percent Auto 59.5 % (42.0-72.0); Platelet Count* 357 K/uL (140-440); RDW Coefficient of Variation % 13.7 % (11.5-15.5); Red Blood Count 4.51 m/uL (4.00-5.20); White Blood Count* 10.14 K/uL (4.50-11.00)
[2024-01-06 16:14] LABS: Slide Review Reflex No
[2024-01-06 16:33] LABS: Hemoglobin A1C* 5.8 % (0-5.6)
== END 2024-01-06 15:37 | disposition home or self-care (01) ==
LOC: LAB 15:38
PROVIDERS: PCP Family Medicine; Visit Provider Family Medicine
DX: Z12.11 Encounter for screening for malignant neoplasm of colon (principal); Z13.1 Encounter for screening for diabetes mellitus; R58 Hemorrhage, not elsewhere classified
CPT/HCPCS: 36415; 82270; 83036; 85025

== ENCOUNTER 2024-06-07 14:58 | Outpatient (REF) | payer OTHER, SELFPAY ==
--- OUTSIDE RECORDS SUMMARY | 2024-06-07 15:01 | XMS_ITS | Clinical Summary ---
Author Organization [employer] [facility] Address [place], [place] [address] Care Team Providers Care Call Center Assistant Name Role Phone VotelTony MD Primary Care Provider + Allergies No [...] 07/15/2014 Supervision of other normal 09/07/2013 07/15/2014 Overview (02/18/2014): Advanced maternal age Abnormal 1st trimester screen with 1/16 risk of Down Syndrome, reassuring level 2 ultrasound. It's a boy! TDaP 01/21/2014 Immunizations Name Administration Dates Next Due AMB Influenza, IIV3 (Age >=3 years)(Flu Clinic Only) 05/30/2009 COVID-19 vaccine (Corimmun-Bio NTech 30mcg/0.3mL) 12YO+ LEWIS-SUCROSE PF, MDV 09/17/2021 Influenza A (H1N1), Inactivated 08/08/2009 [...] Outcome GA Total Labor Labor/2nd/3rd Weight Sex Type Anes PTL Ashley A1 A5 Name Clin 0 Term 40w 0d Vag Y Comments:post h emorrhage 4 Term 40w 0d Vag Y 2009 SAB 4 35w 6d Vag Y Comments:preeclampsia Last Filed [...] cm (5' 3.78) 09/23/2016 12: 10 PM CONVEYOR TENDER [employer] Body Mass Index 45.39 09/23/2016 12:10 PM CONVEYOR TENDER [employer] Plan of Treatment Health Maintenance Due Date Last Done Comments Depression screening for age 12+ 1985 Hepatitis C screening for age 18-79 1991 BMI (ht and wt on same day) for age 18+ 09/23/2017 09/23/2016 Colonoscopy through age 75 2018 Mammogram for age 45-75 03/03/2023 03/03/20, 05/15/2020, 09/23/2016 Zoster (shingles) series for age 50+ (1 of 2) 2023 Tetanus booster 01/22/2024 01/21/2014, 09/08/2007 COVID-19 vaccine series ( season) 2024 09/17/2021, 12/13/2020, 11/22/2020 Influenza for age 50-64 04/22/2024 06/26/20 20, 09/23/2016, 04/23/2014, Additional history exists Lipids for [...] CDT LIPID PANEL Routine 10/21/2021 10:14 AM [employer] ANTI HIV 1/2 Routine 09/03/2013 4:13 PM CONVEYOR TENDER [employer] Supervision of other normal from Last 3 Months or Most Recently Relevant to Health Maintenance Results * SCAN-MAMMOGRAPHY REPORT (03/03/2022 12:00 AM CDT) Anatomical Region Laterality Modality Other Scanner OTHER * LIPID PANEL (10/21/2021 10:14 AM CONVEYOR T[employer]ER [employer]) CHOLESTEROL,TOTAL 179 100 - 199 mg/dL 10/22/2021 10:59 AM CONVEYOR T[employer]ER [employer] [facility] TRIGLYCERIDES 93 <150 mg/dL 10/22/2021 10:59 AM CONVEYOR T[employer]ER [employer] [facility] HDL CHOLESTEROL 56 >40 mg/dL 10:59 AM [facility] NON-HDL CHOLESTEROL 123 <145 mg/dl 10/22/2021 10:59 AM [facility] CHOL/HDL RATIO 3.20 <4.50 10/22/2021 10:59 AM [facility] LDL CHOLESTEROL 104 <=130 mg/dL 10/22/2021 10:59 AM [facility] VLDL CHOLESTEROL 19 <=30 mg/dL 10/22/2021 10:59 AM [facility] PROVIDER ORDERED STATUS RANDOM 10/22/2021 10:59 AM [facility] Blood BLOOD SPECIMEN / Unknown 10/21/2021 10:14 AM CONVEYOR T[employer] 10/22/2021 10:14 AM CON[employer] Christina Sevilla RN, TRAIN DISPATCHER CHEMISTRY [facility] [address] [place] [address] * ANTI HIV 1/2 (09/03/2013 4:13 PM CONVEYOR TENDER [employer]) ANTI HIV 1/2 Non-reacti ve [facility] Blood specimen (specimen) BLOOD SPECIMEN / Unknown 09/03/2013 4:13 PM CONVEYOR TENDER [employer] 09/03/2013 4:02 PM CONVEYOR TENDER [employer] Ashley Marques MD SEND OUTS [facility] [place]NAL ZIP [phone] [place] [phone] from Last 3 Months or Most Recently Relevant to Health Maintenance Advance Directives * Full Code (Latest Code Status on File) Date Activated Date Inactivated Comments 03/14/2014 7:00 PM 03/15/2014 1:38 PM Care Teams Call Center Assistant Relationship Specialty Start Date End Date Votel, Tony Delarosa MD [address] [place] [address] PCP - General Family Practice 12/16/20
--- OUTSIDE RECORDS SUMMARY | 2024-06-07 15:01 | XMS_ITS | Continuity of Care Document ---
Author Organization [facility] Address [address] [place] [address] [place] [address] Assessment No assessment recorded. Plan of Treatment Reminders Order Date Submit Date Provider Last Modified By Organization Details Last Modified Time Details Appointments Any 30 2024 03:00P JADIEL James Not available Not available Not available Lab glycohe moglobi n, total, blood 2023 [email or web address] Not available 05/31/2024 14:53:11 Referral None recorde d. Procedures None recorde d. Surgeries None recorde d. Imaging None recorde d. Medication Orders metform in 500 mg tablet 2023 [facility], [address] [place] [address], [id number], 05/31/2024 14:32:58 Patient TargetsNo targets recorded. Patient Instructions Encounter Date Encounter Id Patient Instructions Last Modified By Organization Details Last Modified Time 05/31/2024 [id number] S??ndrome del t??mario gregoria: instrucciones de cuidado - [carpal tunnel syndrome: care instructions] Not available 05/31/2024 14:37:44 see assessment/plan Not available 05/31/2024 22:49:28 Reason for Referral Community Health Worker Refe rral for Elevated blood-pressure reading without diagnosis of hypertension Home BP program r/t elevated BP reading in clinic today. Referring Physician: Christina Sevilla, Family Medicine, Encounter Date: 12/15/2020 Care Coordination Referral f or Right upper quadrant pain Please help with APC application for likely surgery or GI/Hepatology referral. Referring Physician: Christina Sevilla, Family Medicine, Encounter Date: 12/15/2020 Community Health Worker Refe rral for Elevated blood-pressure reading without diagnosis of hypertension Blood pressure follow up/home monitoring/education Referring Physician: Domonique Caruso Family Medicine, Encounter Date: 01/05/2024 Problems Name Problem SNOMED Code Status Onset Date Resolution Date Notes Provider Name and Address Organization Details Recorded Time Right upper quadrant pain 370363272 Active 2020 Christina Sevilla NP [address] [place] [address], [phone], [facility] 1 11:22:59 Steatosis of liver 791471951 Active 2020 Christina Sevilla NP [address] [place] [address], [phone] 8, [facility] 2 12:45:47 SARS-CoV-2 Active 2019 Christina Sevilla NP [address] [place] [address], [phone] 8, [facility] 2 12:45:45 Obesity 068265716 Active 2021 Christina Sevilla NP [address] [place] [address], [phone] 8, [facility] 2 12:46:09 Prediabete s 965162377 Active 2023 DOMONIQUE CARUSO MD [address] [place] [address], [phone] 8, [facility] 4 13:46:15 Past history of pre-eclamp william 1761929219515 00 Active 2014 Christina Sevilla NP [address] [place] [address], [phone] 8, [facility] 2 12:45:43 Problem Notes None recorded. Procedures Surgical History Date Name Laterality Status Provider Name and Address Organization Details Recorded Time 08/22/19 Date of Last Mammogram completed Christina Sevilla NP [address] [place] [address] [place], [phone], [facility] 09/21/2021 16:08:58 08/22/19 16 Date of Last Pap Smear completed Christina Sevilla NP [address] [facility] [place], [address], [facility] 09/21/2021 16:08:45 08/22/19 14 hysterectomy completed Christina Sevilla NP [address] [facility] [place], [address], [facility] 11/02/2021 12:50:55 Imaging Results None recorded. Procedure Notes None recorded. Medical Equipment None Reported. Allergies No known drug allergies Medications Name Sig Start Date Stop Date Status Note LastModified by Organization Details LastModified Time cyclobenza nadir 10 mg tablet TAKE 1 TABLET BY MOUTH EVERY DAY AT BEDTIME FOR BACK PAIN. 03/01 completed Not Available Not Available Not Available metformin 500 mg tablet Take 1 tablet every day by oral route. 2023 active Not Available Not Available Not Avai lable Levsin 0.125 mg tablet Take 1 tablet twice a day by oral route. 09/21 completed As needed for pain; per Dr. Hill. Not Available Not Available Not Available doxycyclin e hyclate 100 mg capsule TAKE ONE CAPSULE BY MOUTH TWICE A DAY FOR FOLLICUL ITIS 03/01 completed Not Available Not Available Not Available azithromyc in 250 mg tablet 11/03 completed [...] completed Not Available Not Available Not Available loratadine 10 mg tablet TAKE 1 TABLET BY MOUTH EVERY DAY, FOR NASAL CONGESTI ON/SUSPE CTED ALLERGIE S. active Not Available Not Available No t Available amoxicilli n 875 mg-potassi um clavulanat [...] Organization Details Last Updated DateTime 160.02 cm 45 kg/m2 016102. 74 g 22 /min 99 % 99 % 96.8 [degF] 72 /min 138 mm[Hg] 87 mm[Hg] Monica Arriola [facility] [employer] 14:06:47 Date Recorded Systolic blood pressure Diastolic blood pressure Provider Name and Address Organization Details Last Updated DateTime 05/31/2024 128 mm[Hg] 84 mm[Hg] DOMONIQUE CARUSO MD [address] [place], [address], [facility] [employer] [facility] 05/31/2024 14:30:22 Social History None recorded. Functional Status None recorded. Mental Status None recorded. Family History Relationship Description Onset Age of this Age Resolved Age Notes LastModified by Organization Details LastModified Time Mother Type 2 diabetes mellitus [email or web address] Not available 09/21 11:37:46 Mother Hypertensive disorder [email or web address] Not available 09/21 11:38:15 Mother Neoplasm of stomach Not available 09/21 11:38:52 Father Hypertensive disorder [email or web address] Not available 09/21 11:38:15 Sister Malignant tumor of breast Unknow n type; alive and well. [email or web address] Not available 11/02/2021 12:49:57 Medical History Condition Response Obesity Y Endometriosis [...] Encounter Closed Date Diagnosis/Indication Diagnosis SNOMED-CT Code Diagnosis ICD10 Code [id number] DOMONIQUE CARUSO MD [facility] [address] [place] [phone] 05/31/2024 13:56:54 05/31/2024 14:53:46 Prediabetes 121035037 R73.03 Steatosis of liver 1007 K76.0 Screening for malignant neoplasm of breast 312200178 Z12.39 Obesity 355291171 E66.9 Headache 59807419 R51.9 Carpal jia mario syndrome 02834674 G56.03 Health Concerns Section Related Observation LastModified by Organization Detai ls LastModified Time None Recorded Concern Status LastModified by Organization Details LastModified Time None Recorded Payers Encounter Date Sequence Insurance Name Policy Number Policy [employer] Covered Member ID [employer] Member ID Guarantor Name 05/31/2024 SLIDING FEE SCHEDULE - DISCOUNT Zakia Woodruff Notes Date Note Type Note Provider Name and Address Organization Details Recorded Time 05/31/2024 text/html HPI Notes: 48 yo female here for follow up of elevated BP/prediabetes BP Readings fair today. Hx of preeclampsia Has FH hypertension. Prediabetes: takes metformin. 1 tab once daily. Tried BID but it caused nausea/felt lightheaded/faint. Had also made dietary changes with decreased carbs - wonders if some of the side effects were related to the changes in diet rather than the meds . Weight down almost 7 pounds Had been having some headaches 1-2 times a week. Much improved lately Here to review labs that were done in February . Hx steatosis. LFT's WNL Had mammogram ordered for her in the spring scheduled for 06/07 Patient today also reports bilateral hand numbnes when she wakes up - gets better within an hour and helps if she shakes her hands. 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 DOMONIQUE CARUSO MD [address] [place], [address], [facility] 05/31/2024 22:51:47 OBGyn Episode No OBEpisode recorded.
--- NOTE | 2024-06-07 15:20 | CRLHL7_ITS ---
For Patients: As a result of the Century Cures Act, medical imaging exams and procedure reports are released immediately into your electronic medical record. You may view this report before your referring provider. If you have questions, please contact your health care provider. BILATERAL SCREENING MAMMOGRAM WITH COMPUTER-AIDED DETECTION AND TOMOSYNTHESIS TECHNIQUE: CC and MLO views were obtained. These mammographic images have been obtained using full-field digital technique. These mammographic images were interpreted with the benefit of computer-aided detection. Breast Tomosynthesis was used in this interpretation. COMPARISON FILM: 03/03/22, 05/15/20, 09/23/16. FINDINGS: The breasts are almost entirely fatty. IMPRESSION: There is no radiographic evidence for malignancy. ASSESSMENT: BI-RADS Category 1: Negative RECOMMENDATION: Routine screening mammogram in 1 year. A lay language report of this examination will be provided to the patient. Fausto Villalobos M.D. Diagnostic Radiologist [email or web address] SP/Dictated by: Fausto Villalobos MD @ 06/12/2024 11:44:00 AM (Electronically Signed)
== END 2024-06-07 14:59 | disposition home or self-care (01) ==
LOC: MAMMO 14:58
PROVIDERS: PCP Family Medicine; Visit Provider Family Medicine
DX: Z12.31 Encounter for screening mammogram for malignant neoplasm of breast (principal)
CPT/HCPCS: 77063; 77067